=== PATIENT | female | born 1975 | race Caucasian/White ===

== ENCOUNTER 2019-02-27 10:23 | Emergency (ER) | payer BC ==
[2019-02-27 11:37] LABS: ABS Eosinophils 0.1 10^3/ul (0-0.6); ABS Lymphocytes 1.7 10^3/ul (1.0-4.8); ABS Monocytes 0.6 10^3/ul (0-0.8); ABS Neutrophils 3.3 10^3/ul (1.5-7.7); Eosinophil % 1.2 %; Hematocrit 42 % (35-47); Hemoglobin 14.7 g/dL (12.0-16.0); Lymphocyte % 29.2 %; Mean Corpuscular HGB Conc 35 g/dL (31-36); Mean Corpuscular Hemoglobin 31 pg (27-31); Mean Corpuscular Volume 90 fL (80-97); Mean Platelet Volume 5.9 fL (7.4-10.4); Nucleated Red Blood Cells % 0.2; Platelet Count 241 10^3/uL (150-450); Red Cell Distribution Width 14 % (10-15); White Blood Count 5.7 10^3/uL (3.5-10.8)
[2019-02-27 11:54] LABS: Albumin 4.2 g/dL (3.2-5.2); Albumin/Globulin Ratio 1.9 (1-3); BUN/Creatinine Ratio 17.2 (8-20); Calcium 8.6 mg/dL (8.6-10.3); EGFR African American 122.5 (>60); EGFR Non-African American 101.3 (>60); Globulin 2.2 g/dL (2-4); Potassium 3.7 mmol/L (3.5-5.0); Total Bilirubin 0.4 mg/dL (0.2-1.0); Total Protein 6.4 g/dL (6.4-8.9)
--- NOTE | 2019-02-27 15:07 | ED ---
Substance Abuse/Use - HPI Summary HPI Summary: Pt presents to the ED with symptoms of intoxication. Pt states she drank 1/2 bottle of bourbon this morning. Also, endorses for the past 2 mos has been having n/v/d. Currently staying at [facility] d/t recent episodes of SOB, vomiting and diarrhea for a couple of months she thinks secondary to mold in her house. Also endorses she recently stopped taking Modifinil. Denies fevers, sweats, or chills. Denies urinary symptoms, back pain, decreased PO intake. Admits to drinking daily over the past 2 months and feels this as her contributing factor for how she is feeling. Denies any alcohol withdrawal symptoms or seizure history. - History Of Current Complaint Chief Complaint: EDShortnessOfBreath Stated Complaint: SOB,ANXIETY PER EMS Time Seen by Provider: 02/27/19 10:33 Hx Obtained From: Patient ?: No Ingestion History: Amount Ingested - 1/2 bottle bourbon Overdose Characteristics: Oral Timing Of Abuse: Daily Severity Initially: Moderate Severity Currently: Moderate Character: Anxious Aggravating Factor(s): Recent Stress Alleviating Factor(s): Nothing Associated Signs And Symptoms: Negative - Risk Factor(s) Completed Suicide Risk Factors: Negative - Allergies/Home Medications Allergies/Adverse Reactions: Allergies Allergy/AdvReac Type Severity Reaction Status Date / Time No Known Allergies Allergy Verified 02/27/19 10:30 PMH/Surg Hx/FS Hx/Imm Hx Previously Healthy: Yes - Immunization History Hx Pertussis Vaccination: No Immunizations Up to Date: Yes Infectious Disease History: No Infectious Disease History: Denies: Traveled Outside the [place] in Last 30 Days - Social History Occupation: Unemployed Lives: Alone Alcohol Use: Daily Alcohol Amount: 1/2 bottle burbon Hx Substance Use: No Substance Use Type: Reports: None Hx Tobacco Use: No Smoking Status (MU): Never Smoked Tobacco Review of Systems - ROS Summary Review of Systems Summary: patient stating she is asymptomatic of all right now - denies any concerns. admits to alcohol intoxication. Negative: Fever, Chills, Fatigue, Skin Diaphoresis Negative: Palpitations, Chest Pain Negative: Shortness Of Breath, Cough Genitourinary: Negative Positive: no symptoms reported, see HPI Negative: Arthralgia, Myalgia Neurological: Negative Positive: Anxious All Other Systems Reviewed And Are Negative: Yes Physical Exam Triage Information Reviewed: Yes Vital Signs On Initial Exam: Initial Vitals Temp Pulse Resp BP Pulse Ox 98.4 F 76 17 138/97 98 02/27/19 10:27 02/27/19 10:27 02/27/19 10:27 02/27/19 10:27 02/27/19 10:27 Vital Signs Reviewed: Yes Appearance: Positive: Well-Nourished, Ill-Appearing Skin: Positive: Warm, Skin Color Reflects Adequate Perfusion Head/Face: Positive: Normal Head/Face Inspection Eyes: Positive: EOMI, Conjunctiva Clear Neck: Positive: Supple Respiratory/Lung Sounds: Positive: Clear to Auscultation, Breath Sounds Present Cardiovascular: Positive: RRR, Pulses are Symmetrical in both Upper and Lower Extremities Musculoskeletal: Positive: Strength/ROM Intact Neurological: Positive: Slurred Speech, Other Psychiatric: Positive: Anxious - crying - appears intoxicated Procedures - Sedation Patient Received Moderate/Deep Sedation with Procedure: No Diagnostics - Vital Signs Vital Signs Temp Pulse Resp BP Pulse Ox 02/27/19 14:55 90 128/77 98 02/27/19 13:13 94 12 118/88 98 02/27/19 13:00 17 02/27/19 12:30 21 127/80 02/27/19 12:00 14 02/27/19 11:59 25 122/68 02/27/19 11:29 92 26 101/72 96 02/27/19 11:20 93 12 96 02/27/19 10:59 126/81 02/27/19 10:31 81 9 99 02/27/19 10:30 84 138/97 99 02/27/19 10:27 98.4 F 76 17 138/97 98 - Laboratory Lab Results: Lab Results 02/27/19 02/27/19 Range/Units 11:26 11:26 WBC 5.7 (3.5-10.8) 10^3/uL RBC 4.70 (3.70-4.87) 10^6 /uL Hgb 14.7 (12.0-16.0) g/dL Hct 42 (35-47) % MCV 90 (80-97) fL MCH 31 (27-31) pg MCHC 35 (31-36) g/dL RDW 14 (10-15) % Plt Count 241 (150-450) 10^3/uL MPV 5.9 L (7.4-10.4) fL Neut % (Auto) 58.9 % Lymph % (Auto) 29.2 % [place] % (Auto) 9.9 % Eos % (Auto) 1.2 % Baso % (Auto) 0.8 % Absolute Neuts (auto) 3.3 (1.5-7.7) 10^3/ul Absolute Lymphs (auto) 1.7 (1.0-4.8) 10^3/ul Absolute Monos (auto) 0.6 (0-0.8) 10^3/ul Absolute Eos (auto) 0.1 (0-0.6) 10^3/ul Absolute Basos (auto) 0.0 (0-0.2) 10^3/ul Absolute Nucleated RBC 0.0 10^3/ul Nucleated RBC % 0.2 Sodium 141 (135-145) mmol/L Potassium 3.7 (3.5-5.0) mmol/L Chloride 106 (101-111) mmol/L Carbon Dioxide 25 (22-32) mmol/L Anion Gap 10 (2-11) mmol/L BUN 11 (6-24) mg/dL Creatinine 0.64 (0.51-0.95) mg/dL Est GFR ( Amer) 122.5 (>60) Est GFR (Non-Af Amer) 101.3 (>60) BUN/Creatinine Ratio 17.2 (8-20) Glucose 104 H (70-100) mg/dL Calcium 8.6 (8.6-10.3) mg/dL Total Bilirubin 0.40 (0.2-1.0) mg/dL AST 21 (13-39) U/L ALT 15 (7-52) U/L Alkaline Phosphatase 53 (34-104) U/L Total Protein 6.4 (6.4-8.9) g/dL Albumin 4.2 (3.2-5.2) g/dL Globulin 2.2 (2-4) g/dL Albumin/Globulin Ratio 1.9 (1-3) Serum Alcohol 358 H (<10) mg/dL Result Diagrams: 02/27/19 11:26 02/27/19 11:26 Lab Statement: Any lab studies that have been ordered have been reviewed, and results considered in the medical decision making process. Course/Dx - Course Course Of Treatment: During this was treatment, the patient is evaluated for acute alcohol intoxication. Alcohol level = 358. Patient states she would like to quit drinking and is asking for help. Discussed centers in the area for alcohol detoxification and she is given resources for detox and rehabilitation centers in the area. She is also given information to the access Center. Friend is at bedside and discussed with the friend who is taking her home, medication assisted treatment. Librium 50 mg has been prescribed up to 6 times daily, however it was discussed with the patient she will likely not require this much and only take as needed. Likely tomorrow, she will only require 2-3 doses and this dose is easily tapered. Patient not exhibiting symptoms of detox at this time, however friend would like her to stay another few hours. She is clinically sober at 9pm. - Diagnoses Differential Diagnosis/HQI/PQRI: Positive: Alcohol Abuse, Alcohol Withdrawal Provider Diagnoses: Alcohol intoxication Discharge ED - Sign-Out/Discharge Documenting (check all that apply): Sign-Out Patient Signing out patient TO: Leandro Shine - Discharge Plan Condition: Stable Disposition: HOME Prescriptions: [email or web address] CAP* [Librium CAP*] 50 mg PO SEE INSTRUCTIONS #18 cap MDD 6 Patient Education Materials: Abuse of Alcohol (ED) Referrals: [facility] [Outside] Additional Instructions: Please call the surrounding facilities for follow up to addiction treatment programs You will likely need to be completely sober and have detoxed prior to getting into the facility Librium 50mg up to six times daily only when you are having withdraw-like symptoms such as: Insomnia Tremulousness Mild anxiety Gastrointestinal upset, anorexia Headache Diaphoresis Palpitations If you do not have these symptoms, reduce the medication or discontinue. This medication is only as needed. Usually, day 1 - you may need all 6 doses, however by day 2, likely only 3-4 doses. If you develop any seizure like activity - return to the ED immediately Do not continue drinking alcohol while taking this medication This medication should only be dispensed to you by a friend/family member and I advise you to not have access to it - Billing Disposition and Condition Condition: STABLE Disposition: Home - Attestation Statements Provider Attestation: I was available for consult. This patient was seen by the NO. The patient was not presented to, seen by, or examined by me. Leandro Shine MD
[2019-02-27 17:50] VITALS: BP 127/79
== END 2019-02-27 17:48 | disposition home or self-care (01) ==
LOC: ED 10:23
DX: F10.129 Alcohol abuse with intoxication, unspecified (principal); Y90.8 Blood alcohol level of 240 mg/100 ml or more; F41.9 Anxiety disorder, unspecified
CPT/HCPCS: 36415; 80053; 80320; 85025; 99283; G0480